=== PATIENT | male | born 1945 | race Caucasian/White ===

== ENCOUNTER 2022-07-30 09:20 | Day surgery (SDC) | payer MEDICARE ==
[~2022-07-30] VITALS: Ht 182.9 cm; Wt 128.9 kg
[2022-07-30] MEDS ORDERED: ROSUVASTATIN CA20 MG PO (09:55)
[2022-07-30] MEDS ORDERED: Cyclobenzaprine5 MG (09:55)
[2022-07-30] MEDS ORDERED: LOSA50 PO (09:57)
[2022-07-30] MEDS ORDERED: FINA5 (09:58)
[2022-07-30] MEDS ORDERED: ALFUZOSIN HCL10 MG (09:58)
--- NOTE | 2022-07-30 10:03 | NUR ---
07/30/22 1003 Nikky Frnaces AT 0956 PLEFADIAET AT 0961
--- NOTE | 2022-07-30 11:30 | NUR ---
07/30/22 1130 Allen Hernandez PT ADVISED TO MONITOR BLOOD PRESSURE AND FOLLOW UP WITH PCP REGARDING HYPERTENSION.
== END 2022-07-30 11:26 | disposition home or self-care (01) ==
LOC: ORSCSDS 09:20
PROVIDERS: Student in an Organized Health Care Education/Training Program
PROC: 08DK3ZZ Extraction of Left Lens, Percutaneous Approach (ICD-10-PCS; principal; 2022-07-30 10:30)
DX: H25.13 Age-related nuclear cataract, bilateral (principal); I10 Essential (primary) hypertension; G47.33 Obstructive sleep apnea (adult) (pediatric); E78.5 Hyperlipidemia, unspecified; E66.9 Obesity, unspecified; Z68.38 Body mass index [BMI] 38.0-38.9, adult; Z79.899 Other long term (current) drug therapy
CPT/HCPCS: J2001; J2250; J3010; J7040; V2632

== ENCOUNTER 2022-08-13 09:36 | Day surgery (SDC) | payer MEDICARE ==
[~2022-08-13] VITALS: Ht 182.9 cm; Wt 128.2 kg
[~2022-08-13 09:36] MED LIST: ALFUZOSIN HCL10 MG; Cyclobenzaprine5 MG; FINA5; LOSA50 PO; ROSUVASTATIN CA20 MG PO
[2022-08-13] MEDS ORDERED: TAMS.4ER PO (10:06)
--- NOTE | 2022-08-13 10:19 | NUR ---
08/13/22 1019 Sobeida Quijano TETRACAINE DROP PER ORDERS AT 1001 AND YULISSAETT PER ORDERS AT 1004
[2022-08-13 11:41] VITALS: BP 148/84
== END 2022-08-13 11:44 | disposition home or self-care (01) ==
LOC: ORSCSDS 09:36
PROVIDERS: Student in an Organized Health Care Education/Training Program
PROC: 08DJ3ZZ Extraction of Right Lens, Percutaneous Approach (ICD-10-PCS; principal; 2022-08-13 11:00)
DX: H25.11 Age-related nuclear cataract, right eye (principal); Z96.1 Presence of intraocular lens; H18.513 Endothelial corneal dystrophy, bilateral; I10 Essential (primary) hypertension; G47.33 Obstructive sleep apnea (adult) (pediatric); E78.5 Hyperlipidemia, unspecified; E66.9 Obesity, unspecified; Z68.38 Body mass index [BMI] 38.0-38.9, adult; Z79.899 Other long term (current) drug therapy
CPT/HCPCS: J2001; J3010; J7040; V2632

== ENCOUNTER → 2023-01-28 | Outpatient (CLI) | payer MEDICARE ==
[~2023-01-28] MED LIST changes: +TAMS.4ER PO
[2023-01-28 12:49] LABS: BASOPHILS ABSOLUTE AUTO 0.06 K/mm3 (0.00-0.23); BASOPHILS PERCENT AUTO 1 % (0-2); EOSINOPHILS ABSOLUTE AUTO 0.21 K/mm3 (0.00-0.68); EOSINOPHILS PERCENT AUTO 3 % (0-6); Hematocrit 42.5 % (37.0-53.0); Hemoglobin 13.9 g/dL (13.5-17.5); IMMATURE GRAN ABSOLUTE AUTO 0.03 K/mm3 (0.00-0.10); IMMATURE GRAN PERCENT AUTO 0 % (0-1); LYMPHOCYTES PERCENT AUTO 27 % (21-46); MONOCYTES ABSOLUTE AUTO 0.56 K/mm3 (0.16-1.47); MONOCYTES PERCENT AUTO 8 % (4-13); Mean Corpuscular HGB Conc 32.7 g/dL (31.5-36.5); Mean Corpuscular Volume 89 fL (80-100); Mean Platelet Volume 9.5 fL (9.1-12.4); NEUTROPHILS ABSOLUTE AUTO 4.51 K/mm3 (1.96-9.15); NEUTROPHILS PERCENT AUTO 61 % (41-73); Platelet Count 228 K/mm3 (150-400); RDW Coefficient Variation 13.2 % (11.7-14.2); RDW Standard Deviation 42.7 fL (35.1-46.3); White Blood Cell Count 7.37 K/mm3 (4.00-11.30)
[2023-01-28 14:40] LABS: Prostate Specific Antigen 0.475 ng/mL (0.000-4.000)
[2023-01-28 14:45] LABS: Alanine Aminotransfer (ALT/SGP 37 U/L (12-78); Albumin, Blood 3.7 g/dL (3.4-5.0); Albumin/Globulin Ratio 0.9 (0.8-1.8); Alk Phos 85 U/L (50-136); Anion Gap 4 mmol/L (6-16); Aspartate Aminotrans (AST/SGOT 24 U/L (12-37); Bilirubin, Total 0.6 mg/dL (0.1-1.0); Blood Urea Nitrogen 20 mg/dL (8-24); Bun/Creatinine Ratio 26.5 (12.0-20.0); CO2, Blood 28 mmol/L (21-32); Calcium, Blood 8.8 mg/dL (8.5-10.1); Chloride, Blood 106 mmol/L (98-108); Creatinine, Blood 0.75 mg/dL (0.60-1.20); Globulin, Blood 4.2 g/dL (2.2-4.0); Glomerular Filtration Rate 94 (60-); Glucose, Blood 118 mg/dL (70-99); Potassium, Blood 4.2 mmol/L (3.5-5.5); Sodium, Blood 138 mmol/L (136-145); Total Protein, Blood 7.9 g/dL (6.4-8.2)
== END ==
LOC: LAB SHORT 12:05 → LAB 12:05
PROVIDERS: Family Medicine
DX: I10 Essential (primary) hypertension (principal); Z79.899 Other long term (current) drug therapy; N40.1 Benign prostatic hyperplasia with lower urinary tract symptoms; F41.8 Other specified anxiety disorders
CPT/HCPCS: 80053; 83036; 84153; 84443; 85025

== ENCOUNTER → 2023-10-07 | Outpatient (CLI) | payer OTHER | LOC: LAB SHORT 13:52 → PLD 13:52 | DX: D48.5 Neoplasm of uncertain behavior of skin (principal) | CPT/HCPCS: 88312 ==